=== PATIENT | female | born 1970 | race African-American/Black ===

== ENCOUNTER 2018-12-22 12:57 | Inpatient (IN) | payer MEDICAID ==
[~2018-12-22] VITALS: Ht 162.6 cm; Wt 60.8 kg
[2018-12-22] MEDS ORDERED: OXYCODONE-APAP1 T10 PO (13:15)
[2018-12-22] MEDS ORDERED: ATIVAN1 MG (13:15)
[2018-12-22] MEDS ORDERED: COZAAR50 MG (13:16)
[2018-12-22 13:56] LABS: BASOPHILS 0.3 % (0-2); EOSINOPHILS 0.8 % (0-7); HEMATOCRIT 41.9 % (36.0-48.0); HEMOGLOBIN 13.8 g/dL (12-16); IMMATURE GRANULOCYTES 0.2 % (0-5); LYMPHOCYTES 54.3 % (15-50); MCH 30.6 pg (26.0-34.0); MCHC 32.9 g/dL (31.0-37.0); MCV 92.9 fL (80.0-100.0); MEAN PLATELET VOLUME 9.7 fL (7.4-10.4); MONOCYTES 3.1 % (2-11); NEUTROPHILS 41.3 % (40-80); PLATELET COUNT 303 10x3/uL (130-400); RBC 4.51 10x6/uL (4.00-5.40); RDW 18.2 % (11.5-14.5); WBC 8.6 10x3/uL (4.8-10.8)
[2018-12-22 14:08] LABS: ALBUMIN 3.9 g/dL (3.4-5.0); ALKALINE PHOSPHATASE 81 U/L (46-116); ALT (SGPT) 31 U/L (10-68); BILIRUBIN - TOTAL 0.18 mg/dL (0.2-1.3); CALC OSMOLALITY 292 mosm/kg (275-300); CALCIUM 9.2 mg/dL (8.5-10.1); CARBON DIOXIDE 27.9 mmol/L (21.0-32.0); CHLORIDE - SERUM 108 mmol/L (98-107); CREATININE - SERUM 0.7 mg/dL (0.6-1.3); GLUCOSE 99 mg/dL (74-106); POTASSIUM - SERUM 3.5 mmol/L (3.5-5.1); PROTEIN - SERUM 7.8 g/dL (6.4-8.2); SODIUM 148 mmol/L (136-145); UREA NITROGEN 9 mg/dL (7-18); eGFR NON AFRICAN AMERICAN > 90 mL/min (90-120)
--- NOTE | 2018-12-22 14:55 | NUR ---
URINE COLLECTED BY NURSE AND SENT TO LAB.
[2018-12-22 15:24] LABS: APPEARANCE CLEAR (CLEAR); BILIRUBIN NEGATIVE (NEGATIVE); COLOR YELLOW (YELLOW); GLUCOSE NEGATIVE (NEGATIVE); KETONE NEGATIVE (NEGATIVE); NITRITE NEGATIVE (NEGATIVE); PROTEIN NEGATIVE (NEGATIVE); UROBILINOGEN NORMAL (NORMAL)
[2018-12-22 15:37] LABS: UDS - AMPHET NEGATIVE QUAL (NEGATIVE); UDS - BARB NEGATIVE QUAL (NEGATIVE); UDS - BENZO POSITIVE QUAL (NEGATIVE); UDS - COCAINE NEGATIVE QUAL (NEGATIVE); UDS - OPIATE NEGATIVE QUAL (NEGATIVE); UDS - PCP NEGATIVE QUAL (NEGATIVE); UDS - THC NEGATIVE QUAL (NEGATIVE)
[2018-12-22 19:53] LABS: INR 1.07 (0.85-1.17); PROTIME 13.4 SECONDS (11.6-15.0)
[2018-12-22 22:50] VITALS: BP 167/99; BMI 23.0
--- NOTE | 2018-12-22 23:00 | NUR ---
NEW PATIENT ADMITTED TO DR VEGA ON MED 3 FROM [facility] ED. PATIENT ADMITTED FOR AMS AND HYPERAMMONEMIA. PATIENT IS CHRONIC ALCOHOLIC AND DRINKS HARD LIQUOR DAILY. UPON ARRIVAL TO MED 3, PATIENT IS ALERT AND ORIENTED AND ANSWERS QUESTIONS. HOWEVER, PATIENT IS UNABLE TO RECALL HOME MEDICATIONS OR DOSES PATIENT IS COOPERATIVE WITH ADMISSION ASSESSMENT. 20 G IV TO RIGHT AC INFUSING BANANA BAG @ 125 ML/HR. PATIENT REQUESTS SOMETHING FOR PAIN IN LEFT SHOULDER. STATES SHE FELL THIS MORNING AND THAT IS WHY SHE CAME TO THE HOSPITAL. NO PAIN MEDS ORDERED. WILL CALL DR TO GET ORDER FOR PAIN MED. NO FURTHER NEEDS AT THIS TIME. BED IN LOWEST POSITION. SIDE RAILS UP. CALL LIGHT IN REACH. CONTINUE PLAN OF CARE.
--- NOTE | 2018-12-22 23:14 | NUR ---
ORDER FOR TYLENOL 500 MG PO Q6H PRN RECEIVED FROM FLOR GONZALEZ, [employer] OPERATIONS ENGINEER FOR DR VEGA.
--- NOTE | 2018-12-23 03:00 | NUR ---
PATIENT RESING IN BED WITH EYES CLOSED AT THIS TIME. NO SIGNS OF DISTRESS. BED IN LOWEST POSITION. SIDE RAILS UP. CALL LIGTH IN REACH. CONTINUE PLAN OF CARE.
[2018-12-23 04:00] VITALS: BP 181/111
--- NOTE | 2018-12-23 06:20 | NUR ---
BP 181/111. ORDER FOR APRESOLINE 10 MG IV Q6H PRN SBP GREATER THAN 170 RECEIVED FROM FLOR GONZALEZ, DESKTOP ENGINEER FOR DR VEGA.
[2018-12-23 07:37] LABS: BASOPHILS 0.3 % (0-2); HEMOGLOBIN 12.6 g/dL (12-16); IMMATURE GRANULOCYTES 0.1 % (0-5); LYMPHOCYTES 54.5 % (15-50); MCH 30.1 pg (26.0-34.0); MCHC 32.3 g/dL (31.0-37.0); MCV 93.1 fL (80.0-100.0); MEAN PLATELET VOLUME 9.9 fL (7.4-10.4); MONOCYTES 4.3 % (2-11); NEUTROPHILS 39.8 % (40-80); PLATELET COUNT 285 10x3/uL (130-400); RBC 4.19 10x6/uL (4.00-5.40); RDW 17.8 % (11.5-14.5); WBC 7.6 10x3/uL (4.8-10.8)
[2018-12-23 08:23] LABS: ALBUMIN 3.4 g/dL (3.4-5.0); ALKALINE PHOSPHATASE 72 U/L (46-116); ALT (SGPT) 29 U/L (10-68); BILIRUBIN - TOTAL 0.35 mg/dL (0.2-1.3); CALC OSMOLALITY 285 mosm/kg (275-300); CALCIUM 8.4 mg/dL (8.5-10.1); CHLORIDE - SERUM 106 mmol/L (98-107); CREATININE - SERUM 0.7 mg/dL (0.6-1.3); GLUCOSE 103 mg/dL (74-106); POTASSIUM - SERUM 3.7 mmol/L (3.5-5.1); PROTEIN - SERUM 6.7 g/dL (6.4-8.2); SODIUM 145 mmol/L (136-145); UREA NITROGEN 5 mg/dL (7-18); eGFR NON AFRICAN AMERICAN > 90 mL/min (90-120)
--- NOTE | 2018-12-23 09:00 | NUR ---
DENIES ANY NEEDS AT THIS TIME.
[2018-12-23 10:06] VITALS: BP 179/108
[2018-12-23 12:19] VITALS: BP 163/102
[2018-12-23 13:32] VITALS: Ht 162.6 cm; Wt 60.8 kg
[2018-12-23] MEDS ORDERED: NORVASC5 MG PO (15:19)
[2018-12-23 17:44] VITALS: BP 180/122
--- NOTE | 2018-12-23 18:02 | NUR ---
PT DC AT THIS TIME, IV DC WITH CATH INTACT, INSTRUCTIONS GIVEN PT VERABLIZES UNDERSTANDING LEAVING VIA AMBULATING VIA FAMILY MEMBER IN STABLE CONDITION
[2018-12-24 07:33] LABS: HEPATITIS C ANTIBODY <0.1 S/CO RAT (0.0-0.9)
== END 2018-12-23 18:23 | disposition home or self-care (01) | DRG 442 ==
LOC: D.ER 12:57 → EDBD 12:57 → D.M3 18:16 → D.EDHOLD 18:16 → D.M3 19:23
PROVIDERS: Family Medicine; ADMIT Family Medicine
DX: K72.90 Hepatic failure, unspecified without coma (principal); E72.20 Disorder of urea cycle metabolism, unspecified; F17.213 Nicotine dependence, cigarettes, with withdrawal; E86.0 Dehydration; R10.11 Right upper quadrant pain; F41.9 Anxiety disorder, unspecified; I10 Essential (primary) hypertension; Y90.7 Blood alcohol level of 200-239 mg/100 ml; F10.229 Alcohol dependence with intoxication, unspecified

== ENCOUNTER 2019-03-15 16:00 | Emergency (ER) | payer MEDICAID ==
[~2019-03-15] VITALS: Ht 162.6 cm; Wt 50.0 kg
[~2019-03-15 16:00] MED LIST: ATIVAN1 MG; COZAAR50 MG; NORVASC5 MG PO; OXYCODONE-APAP1 T10 PO
[2019-03-15 16:02] VITALS: Ht 162.6 cm; Wt 50.0 kg
[2019-03-15 16:39] LABS: HEMATOCRIT 41.5 % (36.0-48.0); MCH 30.4 pg (26.0-34.0); MCHC 33.7 g/dL (31.0-37.0); MCV 90.2 fL (80.0-100.0); MEAN PLATELET VOLUME 9.9 fL (7.4-10.4); PLATELET COUNT 249 10x3/uL (130-400); RDW 18.8 % (11.5-14.5); WBC 9.6 10x3/uL (4.8-10.8)
[2019-03-15 16:43] LABS: APPEARANCE CLEAR (CLEAR); BILIRUBIN NEGATIVE (NEGATIVE); COLOR YELLOW (YELLOW); GLUCOSE NEGATIVE (NEGATIVE); KETONE NEGATIVE (NEGATIVE); NITRITE NEGATIVE (NEGATIVE); PROTEIN NEGATIVE (NEGATIVE); UROBILINOGEN NORMAL (NORMAL)
[2019-03-15 16:47] LABS: ALBUMIN 3.8 g/dL (3.4-5.0); ALKALINE PHOSPHATASE 86 U/L (46-116); ALT (SGPT) 22 U/L (10-68); BILIRUBIN - TOTAL 0.27 mg/dL (0.2-1.3); CALC OSMOLALITY 294 mosm/kg (275-300); CALCIUM 8.4 mg/dL (8.5-10.1); CARBON DIOXIDE 26.6 mmol/L (21.0-32.0); CHLORIDE - SERUM 109 mmol/L (98-107); GLUCOSE 100 mg/dL (74-106); POTASSIUM - SERUM 3.8 mmol/L (3.5-5.1); PROTEIN - SERUM 7.8 g/dL (6.4-8.2); SODIUM 148 mmol/L (136-145); UREA NITROGEN 14 mg/dL (7-18); eGFR NON AFRICAN AMERICAN 63 mL/min (90-120)
[2019-03-15 16:55] LABS: AMYLASE - SERUM 24 U/L (25-115); LIPASE 162 U/L (73-393)
[2019-03-15 16:56] LABS: TROPONIN-I < 0.017 ng/mL (0.000-0.060)
[2019-03-15] MEDS ORDERED: EDARBI40 MG (17:01)
[2019-03-15] MEDS ORDERED: ATIVAN2 MG PO (17:02)
[2019-03-15] MEDS ORDERED: COZAAR25 MG PO (17:02)
[2019-03-15] MEDS ORDERED: CREON DR 24,001 EACH PO (17:02)
[2019-03-15] MEDS ORDERED: PROTONIX40 MG PO (17:19)
[2019-03-15 17:32] VITALS: BP 113/86
[2019-03-15 18:04] LABS: LYMPHOCYTES 62 % (15-50); MONOCYTES 2 % (2-11); NEUTROPHILS 36 % (40-80); PLATELET ESTIMATE NORMAL
== END 2019-03-15 17:33 | disposition home or self-care (01) ==
LOC: D.ER 16:00
PROVIDERS: Family Medicine
DX: K29.20 Alcoholic gastritis without bleeding (principal)

== ENCOUNTER 2019-05-03 19:22 | Emergency (ER) | payer MEDICAID ==
[~2019-05-03] VITALS: Ht 162.6 cm; Wt 60.9 kg
[~2019-05-03 19:22] MED LIST changes: +ATIVAN2 MG PO; +COZAAR25 MG PO; +CREON DR 24,001 EACH PO; +EDARBI40 MG; +PROTONIX40 MG PO
[2019-05-03 19:33] VITALS: Ht 162.6 cm; Wt 60.9 kg
[2019-05-03] MEDS ORDERED: TORADOL10 MG PO (20:16)
[2019-05-03 20:20] VITALS: BP 133/74
== END 2019-05-03 20:20 | disposition home or self-care (01) ==
LOC: D.ER 19:22
DX: S60.032A Contusion of left middle finger without damage to nail, initial encounter (principal); W23.0XXA Caught, crushed, jammed, or pinched between moving objects, initial encounter; Y93.89 Activity, other specified; Y92.019 Unspecified place in single-family (private) house as the place of occurrence of the external cause

== ENCOUNTER 2019-06-08 07:31 | Day surgery (SDC) | payer MEDICAID ==
[~2019-06-08] VITALS: Ht 162.6 cm; Wt 63.6 kg
--- NOTE | ~2019-06-08 | OP ---
PATIENT NAME: RAMON RIVAS MEDICAL RECORD: [id number] :70 LOCATION:[facility] ADMISSION DATE: SURGEON: HERNESTO TYLER DO DATE OF OPERATION: 06/08/2019 PROCEDURE: Colonoscopy with polypectomy. INDICATIONS FOR PROCEDURE: Chronic constipation, generalized abdominal pain, personal history of polyps with her last colonoscopy being 10/08/2016. SCOPE: Olympus video pediatric colonoscope. MEDICATIONS: 600 mg IV propofol per anesthesia. WITHDRAWAL TIME: 28 minutes. ESTIMATED BLOOD LOSS: Minimal. COMPLICATIONS: None. FINDINGS: Informed consent was given. The patient was made comfortable with the above medication. After reaching an adequate level of sedation by slow IV push, the patient was placed in the left side. A digital rectal examination was performed and revealed some external hemorrhoids. The endoscope was advanced under direct visualization through the rectum to the cecum, confirmed by the presence of the appendiceal orifice and ileocecal valve. The endoscope was slowly withdrawn. Mucosa was carefully examined. The prep quality was good. There were multiple polyps visualized on today's examination. The first was located in the appendiceal orifice. It was benign appearing and measured approximately 4-5 mm in diameter. A biopsy was taken and the polyp was cauterized due to its location and difficulty with removing it using a forcep or snare. In the cecum, there were 3 separate polyps. One was slightly larger at 6 mm in size. It was benign appearing and sessile, and was removed using a hot snare. In other 2 were diminutive measuring 2-3 mm in diameter. They were both removed using the hot forceps. In the ascending colon, there was another benign appearing polyp, which measured approximately 5 mm in diameter. It was removed using EMR technique with a saline pillow followed by hot snare polypectomy. A single endoclip was used to close the tissue to prevent delayed complications. In the sigmoid colon, there were two separate benign-appearing sessile polyps, which ranged in size from 2-4 mm in diameter. They were both removed using hot forceps in 1 piece and completely retrieved. In the rectum, there was 1 benign appearing polyp, which measured approximately 3 mm in diameter and that was removed using hot forceps. There was evidence of moderate diverticulosis throughout the entire colon. Retroflexion was performed in the rectum with visualization of grade II internal hemorrhoids without active bleeding. The endoscope was withdrawn from the patient. The patient tolerated the procedure well and there were no complications. IMPRESSIONS: 1. Multiple polyps as described above, removed using a combination of a hot forcep, hot snare, and EMR technique. 2. Moderate diverticulosis of the entire colon. 3. Internal and external hemorrhoids without bleeding. PLAN AND RECOMMENDATIONS: OPERATIVE REPORT [id number] RAMON RIVAS 1. Discharge home when recovery parameters are met. 2. Follow up biopsy specimen results. 3. High fiber diet. 4. Supplement diet with 1 tablespoon of Metamucil daily. 5. Okay to use MiraLax 1 cap daily as needed for constipation. 6. If these measures fail to improve constipation, consider Linzess or Amimarquisza regarding IBS, which is constipation predominant. 7. Recall will be dependent on pathology of the above polyps, but I anticipate this being 2-3 years. TRANSINT:[id number] Voice Confirmation ID: [id number] DOCUMENT ID: [id number] HERNESTO TYLER DO CC: [id number] DICTATION DATE: 06/08/19 1023 CENTRAL OFFICE TECHNICIAN: 06/08/19 1132 [facility] 06/08/19 [facility] [address] [place] [address]
[~2019-06-08 07:31] MED LIST changes: +TORADOL10 MG PO
[2019-06-08 07:53] LABS: HEMATOCRIT 40.3 % (36.0-48.0); HEMOGLOBIN 13.5 g/dL (12-16); MCH 31.2 pg (26.0-34.0); MCHC 33.5 g/dL (31.0-37.0); MCV 93.1 fL (80.0-100.0); MEAN PLATELET VOLUME 9.4 fL (7.4-10.4); RBC 4.33 10x6/uL (4.00-5.40); RDW 17.2 % (11.5-14.5); WBC 10.1 10x3/uL (4.8-10.8)
[2019-06-08] MEDS ORDERED: PERCOCET 10-321 EAC1 (08:35)
[2019-06-08] MEDS ORDERED: AMBIEN10 MG PO (08:35)
[2019-06-08] MEDS ORDERED: CARAFATE1 G PO (08:36)
[2019-06-08] MEDS ORDERED: PHENERGAN25 M1 PO (08:36)
[2019-06-08 08:44] VITALS: BP 139/101; Ht 162.6 cm; Wt 63.6 kg
--- NOTE | 2019-06-08 10:43 | NUR ---
BP HIGH. PT SELF-ADMINISTERED HOME BP MED
== END 2019-06-08 11:11 | disposition home or self-care (01) ==
LOC: D.OPS 07:31
PROVIDERS: Anesthesiology; ATTEND Internal Medicine Gastroenterology
DX: D12.0 Benign neoplasm of cecum (principal); K63.5 Polyp of colon; K57.30 Diverticulosis of large intestine without perforation or abscess without bleeding; K64.1 Second degree hemorrhoids; K64.4 Residual hemorrhoidal skin tags; Z86.010 Personal history of colon polyps; Z01.812 Encounter for preprocedural laboratory examination

== ENCOUNTER 2019-09-09 23:25 | Emergency (ER) | payer MEDICAID ==
[~2019-09-09] VITALS: Ht 162.6 cm; Wt 65.8 kg
[~2019-09-09 23:25] MED LIST changes: +AMBIEN10 MG PO; +CARAFATE1 G PO; +PERCOCET 10-321 EAC1; +PHENERGAN25 M1 PO
[2019-09-09 23:32] VITALS: Ht 162.6 cm; Wt 65.8 kg
[2019-09-10 00:10] LABS: APPEARANCE CLEAR (CLEAR); BILIRUBIN NEGATIVE (NEGATIVE); COLOR YELLOW (YELLOW); GLUCOSE NEGATIVE (NEGATIVE); KETONE MODERATE mg/dL (NEGATIVE); NITRITE NEGATIVE (NEGATIVE); PROTEIN NEGATIVE (NEGATIVE); UROBILINOGEN NORMAL (NORMAL)
[2019-09-10 00:20] LABS: BASOPHILS 0.5 % (0-2); EOSINOPHILS 0.3 % (0-7); HEMATOCRIT 44.5 % (36.0-48.0); HEMOGLOBIN 14.5 g/dL (12-16); IMMATURE GRANULOCYTES 2.1 % (0-5); LYMPHOCYTES 20.9 % (15-50); MCH 31.5 pg (26.0-34.0); MCHC 32.6 g/dL (31.0-37.0); MCV 96.5 fL (80.0-100.0); MEAN PLATELET VOLUME 9.5 fL (7.4-10.4); MONOCYTES 2.9 % (2-11); NEUTROPHILS 73.3 % (40-80); PLATELET COUNT 280 10x3/uL (130-400); RBC 4.61 10x6/uL (4.00-5.40); RDW 18.6 % (11.5-14.5); WBC 10.5 10x3/uL (4.8-10.8)
[2019-09-10 00:40] LABS: ALBUMIN 3.7 g/dL (3.4-5.0); ALKALINE PHOSPHATASE 87 U/L (46-116); ALT (SGPT) 18 U/L (10-68); BILIRUBIN - TOTAL 0.44 mg/dL (0.2-1.3); CALC OSMOLALITY 278 mosm/kg (275-300); CALCIUM 8.9 mg/dL (8.5-10.1); CARBON DIOXIDE 31.5 mmol/L (21.0-32.0); CHLORIDE - SERUM 102 mmol/L (98-107); CREATININE - SERUM 0.5 mg/dL (0.6-1.3); GLUCOSE 118 mg/dL (74-106); LIPASE 87 U/L (73-393); POTASSIUM - SERUM 4.7 mmol/L (3.5-5.1); PROTEIN - SERUM 7.8 g/dL (6.4-8.2); SODIUM 140 mmol/L (136-145); UREA NITROGEN 10 mg/dL (7-18); eGFR NON AFRICAN AMERICAN > 90 mL/min (90-120)
[2019-09-10 01:10] VITALS: BP 148/82
== END 2019-09-10 01:11 | disposition home or self-care (01) ==
LOC: D.ER 23:25
PROVIDERS: Family Medicine
DX: K59.00 Constipation, unspecified (principal); I10 Essential (primary) hypertension

== ENCOUNTER 2020-03-09 21:15 | Emergency (ER) | payer OTHER ==
[~2020-03-09] VITALS: Ht 162.6 cm; Wt 59.1 kg
[2020-03-09 21:18] VITALS: Ht 162.6 cm; Wt 59.1 kg
[2020-03-09] MEDS ORDERED: HYDROCODON-ACE1 EAC7 PO (21:45)
[2020-03-09 22:27] VITALS: BP 155/89
== END 2020-03-09 22:29 | disposition home or self-care (01) ==
LOC: D.ER 21:15
DX: S52.502A Unspecified fracture of the lower end of left radius, initial encounter for closed fracture (principal); X58.XXXA Exposure to other specified factors, initial encounter; Y93.9 Activity, unspecified; Y92.9 Unspecified place or not applicable; I10 Essential (primary) hypertension; Z72.0 Tobacco use

== ENCOUNTER 2020-05-04 08:35 | Inpatient (IN) | payer OTHER ==
[~2020-05-04] VITALS: Ht 162.6 cm; Wt 63.6 kg
[2020-05-04] VITALS (7 sets, daily range): BP systolic 139–169; BP diastolic 92–110
[~2020-05-04 08:35] MED LIST changes: +HYDROCODON-ACE1 EAC7 PO
[2020-05-04 09:14] LABS: BASOPHILS 0.2 % (0-2); EOSINOPHILS 0.6 % (0-7); HEMATOCRIT 38.4 % (36.0-48.0); HEMOGLOBIN 11.8 g/dL (12-16); IMMATURE GRANULOCYTES 0.9 % (0-5); LYMPHOCYTES 25.9 % (15-50); MCHC 30.7 g/dL (31.0-37.0); MEAN PLATELET VOLUME 9.3 fL (7.4-10.4); MONOCYTES 3.6 % (2-11); NEUTROPHILS 68.8 % (40-80); RBC 4.22 10x6/uL (4.00-5.40); RDW 19.3 % (11.5-14.5); WBC 12.8 10x3/uL (4.8-10.8)
[2020-05-04 09:21] LABS: PLATELET COUNT 419 10x3/uL (130-400)
[2020-05-04 09:23] LABS: APTT 30.6 SECONDS (22.8-39.4); INR 0.99 (0.85-1.17); PROTIME 13.1 SECONDS (11.6-15.0)
[2020-05-04 09:33] LABS: CALC OSMOLALITY 273 mosm/kg (275-300); CHLORIDE - SERUM 104 mmol/L (98-107); GLUCOSE 98 mg/dL (74-106); SODIUM 138 mmol/L (136-145); UREA NITROGEN 6 mg/dL (7-18); eGFR NON AFRICAN AMERICAN 62 mL/min (90-120)
[2020-05-04 09:49] LABS: ALBUMIN 3.4 g/dL (3.4-5.0); ALKALINE PHOSPHATASE 85 U/L (30-120); ALT (SGPT) 21 U/L (10-68); BILIRUBIN - TOTAL 0.22 mg/dL (0.2-1.3); CKMB 1.1 U/L (0.0-3.6); CREATINE KINASE 149 UL (21-215); MAGNESIUM - SERUM 1.9 mg/dL (1.8-2.4); PROTEIN - SERUM 7.6 g/dL (6.4-8.2); TROPONIN-I < 0.017 ng/mL (0.000-0.060)
[2020-05-04 12:35] LABS: CKMB 0.7 U/L (0.0-3.6); CREATINE KINASE 133 UL (21-215); TROPONIN-I < 0.017 ng/mL (0.000-0.060)
--- NOTE | 2020-05-04 13:07 | NUR ---
ROOM ASSIGNED AT 1142. ADMIT PACKET READY AT 1142.
--- NOTE | 2020-05-04 16:01 | NUR ---
SITED 20 GA SALINE LOCK TO RAC X 1 STICK USING ASEPTIC TECHNIQUE PT TOLERATED WELL
[2020-05-04 19:54] LABS: AMYLASE - SERUM 24 U/L (25-115); LIPASE 143 U/L (73-393)
[2020-05-05] VITALS (7 sets, daily range): BP systolic 118–190; BP diastolic 85–102; Ht 162.6 cm; Wt 63.6 kg
[2020-05-05 02:43] LABS: BASOPHILS 0.2 % (0-2); EOSINOPHILS 1.2 % (0-7); HEMATOCRIT 36.7 % (36.0-48.0); HEMOGLOBIN 11.2 g/dL (12-16); LYMPHOCYTES 38.1 % (15-50); MCH 27.6 pg (26.0-34.0); MCHC 30.5 g/dL (31.0-37.0); MCV 90.4 fL (80.0-100.0); MEAN PLATELET VOLUME 9.4 fL (7.4-10.4); MONOCYTES 3.3 % (2-11); NEUTROPHILS 56.2 % (40-80); PLATELET COUNT 393 10x3/uL (130-400); RBC 4.06 10x6/uL (4.00-5.40); RDW 18.6 % (11.5-14.5); WBC 10.1 10x3/uL (4.8-10.8)
[2020-05-05 03:36] LABS: ALBUMIN 2.9 g/dL (3.4-5.0); ALKALINE PHOSPHATASE 86 U/L (30-120); BILIRUBIN - TOTAL 0.14 mg/dL (0.2-1.3); CALC OSMOLALITY 272 mosm/kg (275-300); CALCIUM 8.8 mg/dL (8.5-10.1); CHLORIDE - SERUM 106 mmol/L (98-107); CKMB 0.6 U/L (0.0-3.6); CREATINE KINASE 90 UL (21-215); CREATININE - SERUM 0.8 mg/dL (0.6-1.3); GLUCOSE 87 mg/dL (74-106); POTASSIUM - SERUM 4.1 mmol/L (3.5-5.1); PROTEIN - SERUM 6.9 g/dL (6.4-8.2); SODIUM 138 mmol/L (136-145); TROPONIN-I < 0.017 ng/mL (0.000-0.060); UREA NITROGEN 7 mg/dL (7-18); eGFR NON AFRICAN AMERICAN 81 mL/min (90-120)
[2020-05-05 03:40] LABS: ALT (SGPT) 15 U/L (10-68); MAGNESIUM - SERUM 2.5 mg/dL (1.8-2.4)
--- NOTE | 2020-05-05 07:15 | NUR ---
RECEIVED PT IN BED EYES CLOSED RESP UNLABORED SKIN W/D COLOR WNL NAD NOTED
--- NOTE | 2020-05-05 20:00 | NUR ---
REPORT RECEIVED. PT IN BED VISITING WITH MOTHER. DENIES NEEDS, NO DISTRESS OBSERVED. RR EVEN AND UNLABORED. CALL LIGHT IN REACH. WILL CTM.
[2020-05-06] VITALS: BP 155/82
[2020-05-06 04:00] VITALS: BP 142/84
[2020-05-06 04:51] LABS: BASOPHILS 0.3 % (0-2); EOSINOPHILS 1.1 % (0-7); HEMATOCRIT 35.8 % (36.0-48.0); HEMOGLOBIN 11.1 g/dL (12-16); IMMATURE GRANULOCYTES 1.2 % (0-5); LYMPHOCYTES 34.5 % (15-50); MCH 27.8 pg (26.0-34.0); MCV 89.7 fL (80.0-100.0); MEAN PLATELET VOLUME 8.9 fL (7.4-10.4); MONOCYTES 3.3 % (2-11); NEUTROPHILS 59.6 % (40-80); PLATELET COUNT 365 10x3/uL (130-400); RBC 3.99 10x6/uL (4.00-5.40); RDW 18.8 % (11.5-14.5); WBC 9.1 10x3/uL (4.8-10.8)
[2020-05-06 05:14] LABS: ALBUMIN 2.8 g/dL (3.4-5.0); ALKALINE PHOSPHATASE 78 U/L (30-120); ALT (SGPT) 14 U/L (10-68); BILIRUBIN - TOTAL 0.14 mg/dL (0.2-1.3); CALC OSMOLALITY 273 mosm/kg (275-300); CALCIUM 8.6 mg/dL (8.5-10.1); CARBON DIOXIDE 18.9 mmol/L (21.0-32.0); CHLORIDE - SERUM 107 mmol/L (98-107); CREATININE - SERUM 0.7 mg/dL (0.6-1.3); GLUCOSE 98 mg/dL (74-106); MAGNESIUM - SERUM 2.8 mg/dL (1.8-2.4); POTASSIUM - SERUM 3.7 mmol/L (3.5-5.1); PROTEIN - SERUM 6.6 g/dL (6.4-8.2); SODIUM 138 mmol/L (136-145); UREA NITROGEN 8 mg/dL (7-18); eGFR NON AFRICAN AMERICAN > 90 mL/min (90-120)
[2020-05-06 05:17] LABS: AMYLASE - SERUM 17 U/L (25-115); LIPASE 77 U/L (73-393)
[2020-05-06 08:44] VITALS: BP 172/86
[2020-05-06 10:01] LABS: UDS - AMPHET NEGATIVE QUAL (NEGATIVE); UDS - BARB NEGATIVE QUAL (NEGATIVE); UDS - BENZO NEGATIVE QUAL (NEGATIVE); UDS - COCAINE NEGATIVE QUAL (NEGATIVE); UDS - OPIATE POSITIVE QUAL (NEGATIVE); UDS - PCP NEGATIVE QUAL (NEGATIVE); UDS - THC NEGATIVE QUAL (NEGATIVE)
[2020-05-06 10:18] LABS: BILIRUBIN NEGATIVE (NEGATIVE); GLUCOSE NEGATIVE (NEGATIVE); KETONE SMALL mg/dL (NEGATIVE); NITRITE NEGATIVE (NEGATIVE); SPECIFIC GRAVITY 1.015 (1.005-1.020); UROBILINOGEN NORMAL (NORMAL)
[2020-05-06 11:41] VITALS: BP 155/89
[2020-05-06 15:24] VITALS: BP 160/92
--- NOTE | 2020-05-06 19:00 | NUR ---
REPORT RECEIVED, WILL CONTINUE POC. PATIENT IS AAOX4, LYING IN SEMI-FOWLERS POSITION. NO S/S OF DISTRESS OBSERVED, RR EVEN AND UNLABORED ON ROOM AIR. PIV TO RT FA, INFUSING NS @ 125, DRSG C/D/I. PATIENT DENIES NEEDS AT THIS TIME. CL IN REACH, BED LOCKED AND LOWERED. WILL CTM.
[2020-05-06 20:30] VITALS: BP 174/97
--- NOTE | 2020-05-06 20:30 | NUR ---
PATIENT ASKED FOR PRN AMBIEN, ADMINISTERED PER ORDERS.
--- NOTE | 2020-05-06 20:35 | NUR ---
BP 174/97 PRN APRESONLINE ADMINISTERED PER ORDERS.
--- NOTE | 2020-05-06 22:50 | NUR ---
PATIENT C/O PAIN, MORPHINE AND ZOFRAN ADMINISTERED PER ORDERS.
[2020-05-07 00:30] VITALS: BP 160/77
--- NOTE | 2020-05-07 02:54 | NUR ---
I have reviewed this patient and I concur with the Shift Assessment completed by the Licensed Practical Nurse today this shift.
[2020-05-07 04:30] VITALS: BP 151/82
[2020-05-07 07:40] VITALS: BP 151/90
--- NOTE | 2020-05-07 07:58 | NUR ---
PT AWAKE AND ORIENTED, LYING IN BED ON LEFT SIDE. NO COMPLAINTS OR CONCERNS STATED AT THIS TIME. CL IN REACH, SRX2. ALL QUESTIONS ANSWERED TO THE BEST OF MY ABILITY.
[2020-05-07 08:02] LABS: BASOPHILS 0.2 % (0-2); EOSINOPHILS 1.1 % (0-7); HEMATOCRIT 35.6 % (36.0-48.0); HEMOGLOBIN 10.8 g/dL (12-16); IMMATURE GRANULOCYTES 1.1 % (0-5); LYMPHOCYTES 35.7 % (15-50); MCH 27.6 pg (26.0-34.0); MCHC 30.3 g/dL (31.0-37.0); MEAN PLATELET VOLUME 9.3 fL (7.4-10.4); MONOCYTES 3.9 % (2-11); PLATELET COUNT 310 10x3/uL (130-400); RBC 3.91 10x6/uL (4.00-5.40); RDW 19.5 % (11.5-14.5); WBC 8.4 10x3/uL (4.8-10.8)
[2020-05-07 08:21] LABS: ALBUMIN 2.9 g/dL (3.4-5.0); ALKALINE PHOSPHATASE 70 U/L (30-120); ALT (SGPT) 17 U/L (10-68); AMYLASE - SERUM 21 U/L (25-115); BILIRUBIN - TOTAL 0.13 mg/dL (0.2-1.3); CALC OSMOLALITY 275 mosm/kg (275-300); CALCIUM 8.6 mg/dL (8.5-10.1); CARBON DIOXIDE 19.9 mmol/L (21.0-32.0); CHLORIDE - SERUM 109 mmol/L (98-107); CREATININE - SERUM 0.7 mg/dL (0.6-1.3); GLUCOSE 99 mg/dL (74-106); LIPASE 84 U/L (73-393); POTASSIUM - SERUM 3.8 mmol/L (3.5-5.1); PROTEIN - SERUM 6.5 g/dL (6.4-8.2); SODIUM 139 mmol/L (136-145); UREA NITROGEN 8 mg/dL (7-18); eGFR NON AFRICAN AMERICAN > 90 mL/min (90-120)
--- NOTE | 2020-05-07 09:01 | NUR ---
PT AWAKE AND ORIENTED, LYING IN BED ON SIDE. FIXED I/V IT WAS BEEPING D/T POSITION.
--- NOTE | 2020-05-07 11:18 | NUR ---
PT RESTING COMFORTABLY, WAKES EASILY TO LIGHT STIMULI. DNEIES NEEDS FOR PAIN OR NAUSEA MEDS AT THIS TIME. CL NI REACH, SRX2.
[2020-05-07 11:37] VITALS: BP 191/97
--- NOTE | 2020-05-07 14:33 | NUR ---
PT WILL BE DISCHARGING PER DR. RAMIREZ.
[2020-05-07 14:40] LABS: CHOL - HDL RATIO 5.3 ratio (2.3-4.1); CHOLESTEROL, TOTAL 205 mg/dL (0-200); HDL CHOLESTEROL 39 mg/dL (32-96); TRIGLYCERIDE 444 mg/dL (30-200)
[2020-05-07 14:54] VITALS: BP 146/95
--- NOTE | 2020-05-07 15:21 | MORECARE ---
CASE MANAGEMENT DISCHARGE SUMMARY PATIENT: RAMON RIVAS UNIT: [id number] ADM DATE: 05/06/20 AGE: 49 : 70 SEX: F ROOM/BED: D.7926 AUTHOR: MAXIME,DOC PHYSICIAN: REFERRING PHYSICIAN: RAYO ANNE MD DATE OF SERVICE: 05/07/20 Discharge Plan Patient Name: RAMON RIVAS Facility: [facility]:[place] : 1970 Planned Disposition: Home Anticipated Discharge Date: Discharge Date: Expected LOS: Initial Reviewer: [email or web address] Initial Review Date: 05/04/2020 Generated: 05/07/20 4:20 pm Comments DCP- Discharge Planning Updated by [email or web address]: Nidhi Tripp on 05/07/20 2:[address] Patient Name: RAMON RIVAS Admission Status: ER Accout number: [id number] Admission Date: 05-06-2020 : 1970 Admission Diagnosis: Attending: EDWIN Current LOS: 1 Anticipated DC Date: Planned Disposition: Home Primary Insurance: [employer] MANAGED MEDICAID Discharge Planning Comments: CM met with patient to complete initial dc planning assessment. CM educated patient on the CM role and verbal consent given by patient to complete assessment. CM verified patient's address, phone number, and emergency contact phone numbers. Patient lives at home with Carlos Alberto escobar boyfriend. At discharge patient plans to return home and feels this is a safe discharge. CM discussed availability of home health, rehab services, and medical equipment. Patient denied known discharge needs at this time. Transportation provider at discharge will be Carlos Alberto. CM will continue to follow and will assist as needed with dc plans/needs. Dental Surgeon: Nidhi Tripp DCPIA - Discharge Planning Initial Assessment Updated by [email or web address]: Nidhi Tripp on 05/07/20 3:19 pm * Is the patient Alert and Oriented? Yes * How many steps to enter\exit or inside your home? 0/0 * PCP Brayan * Pharmacy [facility] on [facility] * Preadmission Environment Home with Family * ADLs Independent * Equipment Other * Other Equipment arm splint/brace * List name and contact numbers for known caregivers / representatives who currently or will assist patient after discharge: Carlos Alberto Leigh boyfriend * Verbal permission to speak to the caregivers and representatives has been obtained from the patient. N/A * Community resources currently utilized None * Additional services required to return to the preadmission environment? No * Can the patient safely return to the preadmission environment? Yes * Has this patient been hospitalized within the prior 30 days at any hospital? No Patient Name: RAMON RIVAS Page [id number] at 1521 All edits/amendments must be made on the electronic document DICTATION DATE: 05/07/20 1520 STAFF DEVELOPMENT COORDINATOR: DARYL 05/07/20 1520 RPT#: [id number] DC DATE: STATUS: ADM IN [facility] [address] [place] [address] END OF REPORT
--- NOTE | 2020-05-07 15:42 | NUR ---
PT ECORTED OUT TO POV, I/V OUT TIP INTACT VALERIE MOJICA
--- NOTE | 2020-05-08 09:25 | MORECARE ---
CASE MANAGEMENT DISCHARGE SUMMARY PATIENT: RAMON RIVAS UNIT: [id number] ADM DATE: 05/06/20 AGE: 49 : 70 SEX: F ROOM/BED: D.6292 AUTHOR: MAXIME,DOC PHYSICIAN: REFERRING PHYSICIAN: RAYO ANNE MD DATE OF SERVICE: 05/08/20 Discharge Plan Patient Name: RAMON RIVAS Facility: [facility]:[place] : 1970 Planned Disposition: Home Anticipated Discharge Date: Discharge Date: 05/07/2020 Expected LOS: Initial Reviewer: [email or web address] Initial Review Date: 05/04/2020 Generated: 05/08/20 10:25 am Comments DCP- Discharge Planning Updated by [email or web address]: Nidhi Tripp on 05/07/20 2:[address] Patient Name: RAMON RIVAS Admission Status: ER Accout number: [id number] Admission Date: 05-06-2020 : 1970 Admission Diagnosis: Attending: EDWIN Current LOS: 1 Anticipated DC Date: Planned Disposition: Home Primary Insurance: [employer] MANAGED MEDICAID Discharge Planning Comments: CM met with patient to complete initial dc planning assessment. CM educated patient on the CM role and verbal consent given by patient to complete assessment. CM verified patient's address, phone number, and emergency contact phone numbers. Patient lives at home with Carlos Alberto for boyfriend. At discharge patient plans to return home and feels this is a safe discharge. CM discussed availability of home health, rehab services, and medical equipment. Patient denied known discharge needs at this time. Transportation provider at discharge will be Carlos Alberto. CM will continue to follow and will assist as needed with dc plans/needs. Warp Bleaching Vat Tender: Nidhi Tripp DCPIA - Discharge Planning Initial Assessment Updated by [email or web address]: Nidhi Tripp on 05/07/20 3:19 pm * Is the patient Alert and Oriented? Yes * How many steps to enter\exit or inside your home? 0/0 * PCP Brayan * [facility] * Preadmission Environment Home with Family * ADLs Independent * Equipment Other * Other Equipment arm splint/brace * List name and contact numbers for known caregivers / representatives who currently or will assist patient after discharge: Carlos Alberto [place] boyfriend * Verbal permission to speak to the caregivers and representatives has been obtained from the patient. N/A * Community resources currently utilized None * Additional services required to return to the preadmission environment? No * Can the patient safely return to the preadmission environment? Yes * Has this patient been hospitalized within the prior 30 days at any hospital? No Last DP export: 05/07/20 2:21 pm Patient Name: RAMON RIVAS Page [phone] at 09 All edits/amendments must be made on the electronic document DICTATION DATE: 05/08/20924 PSYCHOLOGY PHYSICIAN: DARYL 05/08/20924 RPT#: [id number] DC DATE:05/07/20 STATUS: DIS IN [facility] [address] [place] [address] END OF REPORT
== END 2020-05-07 15:42 | disposition home or self-care (01) | DRG 204 ==
LOC: D.ER 08:35 → D.M2 11:37 → OBSVTIME 11:38 → D.M2 05-06 15:22
PROVIDERS: Family Medicine; ADMIT Family Medicine; ATTEND Family Medicine
DX: R07.81 Pleurodynia (principal); K85.90 Acute pancreatitis without necrosis or infection, unspecified; F17.213 Nicotine dependence, cigarettes, with withdrawal; I31.3 Pericardial effusion (noninflammatory); R07.89 Other chest pain; I10 Essential (primary) hypertension; F41.9 Anxiety disorder, unspecified; F10.20 Alcohol dependence, uncomplicated; K76.0 Fatty (change of) liver, not elsewhere classified; D64.9 Anemia, unspecified; D47.3 Essential (hemorrhagic) thrombocythemia

== ENCOUNTER → 2021-02-04 13:26 | Outpatient (CLI) | payer OTHER ==
[2020-05-05 01:45] VITALS: BMI 22.7
== END | disposition home or self-care (01) ==
LOC: D.NM 01-25 08:00
PROVIDERS: ATTEND Internal Medicine Gastroenterology
DX: R93.89 Abnormal findings on diagnostic imaging of other specified body structures (principal)

== ENCOUNTER 2021-02-28 09:27 | Day surgery (SDC) | payer OTHER ==
[~2021-02-28] VITALS: Ht 162.6 cm; Wt 64.4 kg
[~2021-02-28 09:27] MED LIST changes: +CREON PO; +HYDROCHLOROTH12.5 M1 PO; +OMEPRAZOLE20 M1 PO
[2021-02-28 12:28] VITALS: BP 116/113; Ht 162.6 cm; Wt 64.4 kg
[2021-02-28 12:55] LABS: CALC OSMOLALITY 279 mosm/kg (275-300); CALCIUM 9.1 mg/dL (8.5-10.1); CARBON DIOXIDE 25.8 mmol/L (21.0-32.0); CHLORIDE - SERUM 100 mmol/L (98-107); CREATININE - SERUM 0.8 mg/dL (0.6-1.3); GLUCOSE 100 mg/dL (74-106); POTASSIUM - SERUM 3.8 mmol/L (3.5-5.1); SODIUM 139 mmol/L (136-145); UREA NITROGEN 18 mg/dL (7-18); eGFR NON AFRICAN AMERICAN 80 mL/min (90-120)
[2021-02-28 12:58] LABS: BASOPHILS 0.6 % (0-2); EOSINOPHILS 0.9 % (0-7); HEMATOCRIT 41.4 % (36.0-48.0); HEMOGLOBIN 12.7 g/dL (12-16); IMMATURE GRANULOCYTES 0.3 % (0-5); LYMPHOCYTE ABS# 3.84 10x3/uL (1.18-3.74); LYMPHOCYTES 38.9 % (15-50); MCH 26.6 pg (26.0-34.0); MCHC 30.7 g/dL (31.0-37.0); MCV 86.6 fL (80.0-100.0); MEAN PLATELET VOLUME 9.8 fL (7.4-10.4); MONOCYTES 4.3 % (2-11); NEUTROPHIL ABS# 5.43 10x3/uL (1.56-6.13); RBC 4.78 10x6/uL (4.00-5.40); RDW 22.1 % (11.5-14.5); WBC 9.9 10x3/uL (4.8-10.8)
[2021-02-28 13:00] LABS: PLATELET COUNT 397 10x3/uL (130-400)
--- NOTE | 2021-02-28 16:49 | NUR ---
1625 PT ON 2LITERS NC. O2 SAT 88 ON RA. STATED SHE WAS HURTING. ABDOMEN SOFT AND DRESSING CDI. PT SHAKING STATED IT WAS NERVES. PT HAS ANXIETY. 1650 RECEIVED ICE CREAM AND WILL GIVE A PAIN PILL
--- NOTE | 2021-02-28 17:50 | NUR ---
1655 MEDICATED FOR PAIN
--- NOTE | 2021-02-28 19:52 | NUR ---
BLADDER SCANNED PT AND 203ML IN BLADDER. PT HAS NO IV OR UGENCY TO URINATE. MARINE DRILLER CALLED FOR A BED UNTIL PT IS ABLE TO URINATE
--- NOTE | 2021-02-28 19:55 | NUR ---
1830 IV REMOVED AND PT DRESSED AND INSTRUCTIONS GIVEN
--- NOTE | 2021-02-28 20:04 | NUR ---
2000 REPORT GIVEN TO BISHOP MACIAS
--- NOTE | 2021-02-28 20:05 | NUR ---
2000 PT TRANSFERED TO [facility] UNTIL ABLE TO URINATE
--- NOTE | 2021-02-28 23:44 | NUR ---
PT VOIDED >30ML, ESCORTED PT TO ER ENTRANCE VIA WHEELCHAIR.
--- NOTE | 2021-03-01 15:14 | OP ---
PATIENT NAME: RAMON RIVAS MEDICAL RECORD: [id number] :70 LOCATION:D.OPS ADMISSION DATE: SURGEON: MARY PIZARRO MD DATE OF OPERATION: 02/28/2021 PREOPERATIVE DIAGNOSES: 1. Biliary dyskinesia. 2. Hepatic steatosis by CT scan. POSTOPERATIVE DIAGNOSES: 1. Biliary dyskinesia. 2. Hepatic steatosis by CT scan. 3. Hepatomegaly. 4. Lower midline adhesions below the umbilicus. PROCEDURES: 1. Laparoscopic cholecystectomy. 2. Intraoperative cholangiography without immediate surgeon interpretation. 3. A 14-gauge core needle liver biopsy. SURGEON: Mary Pizarro MD. EMERGENCY VETERINARY ASSISTANT: None. BLOOD LOSS: Minimal. ANESTHESIA: General. COMPLICATIONS: None. INDICATIONS: Indication for the liver biopsy was hepatomegaly. It appeared that the patient had fatty liver disease and we need to address the severity of the fatty liver disease. DESCRIPTION OF PROCEDURE: The patient was conveyed to the operating room electively on 02/28/2021. General anesthesia was induced by the anesthesia staff. The abdomen was sterilely prepped and draped. Small skin incision was accomplished in the left upper quadrant. A Veress needle was inserted through the skin incision into the peritoneal cavity. CO2 insufflation was begun. Once a sufficient pneumoperitoneum had been achieved, a 5-mm trocar was inserted through this incision in the left upper quadrant. Under direct internal vision utilizing a television camera, a 12-mm trocar was inserted through the incision at the umbilicus. Another 5-mm trocar was inserted in the epigastrium to the right and then a 5-mm trocar was inserted far laterally in the right upper quadrant. During insertion of the Veress needle and all trocars, there appeared to have been no injury to the bowels, any intraperitoneal or retroperitoneal structures. Under laparoscopic guidance, I percutaneously accessed the right upper quadrant utilizing a 14-gauge core biopsy device. Core biopsies of the liver were obtained over its convexity. The biopsy sites were made hemostatic with the electrocautery. I then grasped the gallbladder. I advanced a cholangiogram trocar. I punctured the fundus of the gallbladder. I aspirated bile. I then injected dye. Real time static fluoroscopic images were obtained and sent to the radiologist for interpretation. These were cholangiographic images. I OPERATIVE REPORT [id number] MILY RIVASTA aspirated bile and removed the cholangiogram trocar. The gallbladder was grasped and retracted cephalad. The infundibulum was grasped and retracted laterally. Blunt dissection was begun in the triangle of Calot. One cystic artery and one cystic duct were identified, these were clipped multiply and divided between clips. The gallbladder was then excised from its bed in the liver. It was placed within a bag retrieval device and was withdrawn through the umbilical fascial defect. I irrigated and aspirated in the right upper quadrant. There was no bleeding even at low pressure of 8. The Varghese-Ion suture closure device and 0 Vicryl sutures were used to close the umbilical fascial defect. All trocars were removed and the abdomen desufflated. The skin incision at the umbilicus was closed with interrupted 4-0 Vicryl Rapide sutures. The other skin incisions were closed with interrupted intracuticular 3-0 Vicryls. Benzoin and Steri-Strips were applied. The patient was then extubated and conveyed to the postanesthesia care unit where she was in stable condition. It should be noted that on today's chest x-ray, the patient was found to have a new greater than 5 cm mass at the base of the right lung. This was not present on the most prior chest x-ray and it is very suspicious for a malignancy. I have told the patient this and I have described the importance of her to undergo a CT scan of the chest. I have asked her to make an appointment to see Dr. Feliz Schmidt who can set up the CT scan. TRANSINT:[id number] Voice Confirmation ID: [id number] DOCUMENT ID: [id number] MARY PIZARRO MD at 1514 CC: ALEIDA SCHMIDT [id number] DICTATION DATE: 02/28/21 185 CAPACITY PLANNING ENGINEER: 02/28/212124 [facility] 02/28/21 [place] [id number] [place] [id number]
== END 2021-02-28 23:50 | disposition home or self-care (01) ==
LOC: D.OPS 09:27 → D.MS 20:05 → D.OPS 23:50
PROVIDERS: ATTEND Surgery
DX: K82.8 Other specified diseases of gallbladder (principal); R16.0 Hepatomegaly, not elsewhere classified; K75.81 Nonalcoholic steatohepatitis (NASH); I10 Essential (primary) hypertension; K21.00 Gastro-esophageal reflux disease with esophagitis, without bleeding

== ENCOUNTER 2021-03-28 22:06 | Emergency (ER) | payer OTHER ==
[~2021-03-28] VITALS: Ht 162.6 cm; Wt 61.8 kg
[2021-03-28 22:12] VITALS: Ht 162.6 cm; Wt 61.8 kg
[2021-03-28 23:27] LABS: HEMATOCRIT 34.8 % (36.0-48.0); HEMOGLOBIN 10.9 g/dL (12-16); MCH 26.5 pg (26.0-34.0); MCHC 31.3 g/dL (31.0-37.0); MCV 84.5 fL (80.0-100.0); MEAN PLATELET VOLUME 9.1 fL (7.4-10.4); NEUTROPHILS 54.3 % (40-80); PLATELET COUNT 369 10x3/uL (130-400); RBC 4.12 10x6/uL (4.00-5.40); RDW 20.3 % (11.5-14.5); WBC 8.9 10x3/uL (4.8-10.8)
[2021-03-28 23:42] LABS: ANION GAP 16.7 mmol/L (8-16); APTT 35.8 SECONDS (22.8-39.4); CALCIUM 9.2 mg/dL (8.5-10.1); CARBON DIOXIDE 23.1 mmol/L (21.0-32.0); CREATININE - SERUM 0.9 mg/dL (0.6-1.3); INR 1.15 (0.85-1.17); POTASSIUM - SERUM 3.8 mmol/L (3.5-5.1); PROTIME 13.7 SECONDS (11.6-15.0)
[2021-03-28 23:48] LABS: ALBUMIN 4.2 g/dL (3.4-5.0); BILIRUBIN - TOTAL 0.53 mg/dL (0.2-1.3)
[2021-03-29 00:05] VITALS: BP 175/111
== END 2021-03-29 00:24 | disposition home or self-care (01) ==
LOC: D.ER 22:06
PROVIDERS: Emergency Medicine
DX: K92.2 Gastrointestinal hemorrhage, unspecified (principal); R10.9 Unspecified abdominal pain; I10 Essential (primary) hypertension; K21.9 Gastro-esophageal reflux disease without esophagitis; Z72.0 Tobacco use

== ENCOUNTER 2021-03-30 19:57 | Inpatient (IN) | payer OTHER ==
[~2021-03-30] VITALS: Ht 162.6 cm; Wt 63.5 kg
[2021-03-30 20:41] LABS: BASOPHILS 0.3 % (0-2); HEMOGLOBIN 10.7 g/dL (12-16); IMMATURE GRANULOCYTES 0.5 % (0-5); LYMPHOCYTE ABS# 6.51 10x3/uL (1.18-3.74); LYMPHOCYTES 44.4 % (15-50); MCH 25.9 pg (26.0-34.0); MCHC 31.5 g/dL (31.0-37.0); MEAN PLATELET VOLUME 9.2 fL (7.4-10.4); MONOCYTES 4.5 % (2-11); NEUTROPHIL ABS# 6.32 10x3/uL (1.56-6.13); NEUTROPHILS 43.3 % (40-80); PLATELET COUNT 378 10x3/uL (130-400); RBC 4.13 10x6/uL (4.00-5.40); RDW 20.5 % (11.5-14.5)
[2021-03-30 20:44] LABS: CALCIUM 8.6 mg/dL (8.5-10.1); CARBON DIOXIDE 22.4 mmol/L (21.0-32.0); CHLORIDE - SERUM 98 mmol/L (98-107); GLUCOSE 103 mg/dL (74-106); SODIUM 135 mmol/L (136-145)
[2021-03-30 20:45] LABS: CALC OSMOLALITY 273 mosm/kg (275-300); CREATININE - SERUM 1.5 mg/dL (0.6-1.3); POTASSIUM - SERUM 3.2 mmol/L (3.5-5.1); UREA NITROGEN 23 mg/dL (7-18); eGFR NON AFRICAN AMERICAN 39 mL/min (90-120)
[2021-03-30 20:58] LABS: MCV 82.3 fL (80.0-100.0); WBC 14.7 10x3/uL (4.8-10.8)
[2021-03-30 20:59] LABS: ALBUMIN 3.9 g/dL (3.4-5.0); ALKALINE PHOSPHATASE 80 U/L (30-120); ALT (SGPT) 17 U/L (10-68); BILIRUBIN - TOTAL 0.16 mg/dL (0.2-1.3); C-REACTIVE PROTEIN 0.6 mg/dL (0.0-0.9); CREATINE KINASE 153 UL (21-215); LIPASE 76 U/L (73-393); PRO BNP 62 pg/mL (0-125); PROTEIN - SERUM 7.9 g/dL (6.4-8.2); THYROID STIMULATING HORMONE 3.38 uIU/mL (0.36-3.74); TROPONIN-I < 0.017 ng/mL (0.000-0.060)
[2021-03-30 21:13] LABS: APTT 28.8 SECONDS (22.8-39.4); INR 1.11 (0.85-1.17); PROTIME 13.2 SECONDS (11.6-15.0)
[2021-03-30 22:04] LABS: HEMATOCRIT 31.5 % (36.0-48.0); HEMOGLOBIN 10.1 g/dL (12-16)
--- NOTE | 2021-03-30 23:58 | NUR ---
PATIENT ARRIVED TO ICU. PATIENT IS ALERT AND ORIENTED, RESTING COMFORTABLY IN BED. RESPIRATIONS ARE EVEN AND UNLABORED. NO S/S OF DISTRESS. NO C/O PAIN. NEEDS MET AT THIS TIME. CALL LIGHT WITHIN REACH. WILL CPOC.
[2021-03-31] VITALS (15 sets, daily range): BP systolic 114–177; BP diastolic 84–108; BMI 24.0
--- NOTE | 2021-03-31 00:40 | NUR ---
PATIENT TRANSPORTED TO [facility].
--- NOTE | 2021-03-31 02:00 | NUR ---
PATIENT RETURNED FROM NUC/MED. PATIENT IS ALERT AND ORIENTED, RESTING COMFORTABLY IN BED. RESPIRATIONS ARE EVEN AND UNLABORED. NO S/S OF DISTRESS. NO C/O PAIN. DENIES NEEDS AT THIS TIME. CALL LIGHT WITHIN REACH. WILL CPOC.
--- NOTE | 2021-03-31 02:30 | NUR ---
SECOND UNIT OF [facility] STARTED. PATIENT IS ALERT AND ORIENTED. NO S/S OF DISTRESS. NO C/O PAIN. BP 145/95. RESPIRATION 20, PULSE 85.
--- NOTE | 2021-03-31 03:37 | NUR ---
PATIENT CALLED ON THE CALL LIGHT. THIS RN AND TREMAYNE RN WENT INTO PATIENT ROOM. PATIENT MADE ACCUSATIONS THAT EVERYONE WAS TALKING ABOUT HER AND WE NEED TO KEEP HER NAME OUT OF OUR MOUTHS. MYSELF AND TREMAYNE RN ATTEMPTED TO REASSURE PATIENT THAT NO ONE WAS TALKING ABOUT HER. PATIENT BECAME MORE AGITATED. BOTH NURSES APOLOGIZED AND LEFT ROOM.
[2021-03-31 08:19] LABS: BASOPHILS 0.4 % (0-2); EOSINOPHILS 5.6 % (0-7); HEMATOCRIT 36.4 % (36.0-48.0); HEMOGLOBIN 11.8 g/dL (12-16); IMMATURE GRANULOCYTES 0.3 % (0-5); LYMPHOCYTE ABS# 4.27 10x3/uL (1.18-3.74); LYMPHOCYTES 35.1 % (15-50); MCH 26.6 pg (26.0-34.0); MCHC 32.4 g/dL (31.0-37.0); MEAN PLATELET VOLUME 9.5 fL (7.4-10.4); MONOCYTES 3.4 % (2-11); NEUTROPHIL ABS# 6.72 10x3/uL (1.56-6.13); NEUTROPHILS 55.2 % (40-80); PLATELET COUNT 358 10x3/uL (130-400); RBC 4.44 10x6/uL (4.00-5.40); RDW 20.3 % (11.5-14.5); WBC 12.2 10x3/uL (4.8-10.8)
[2021-03-31 08:28] LABS: ALBUMIN 3.9 g/dL (3.4-5.0); ALKALINE PHOSPHATASE 78 U/L (30-120); ALT (SGPT) 15 U/L (10-68); BILIRUBIN - TOTAL 0.42 mg/dL (0.2-1.3); CALC OSMOLALITY 275 mosm/kg (275-300); CALCIUM 9.2 mg/dL (8.5-10.1); CARBON DIOXIDE 23.4 mmol/L (21.0-32.0); CHLORIDE - SERUM 101 mmol/L (98-107); GLUCOSE 92 mg/dL (74-106); MAGNESIUM - SERUM 2.1 mg/dL (1.8-2.4); PHOSPHOROUS 3.5 mg/dL (2.5-4.9); PROTEIN - SERUM 7.9 g/dL (6.4-8.2); SODIUM 137 mmol/L (136-145); UREA NITROGEN 19 mg/dL (7-18)
[2021-03-31 08:29] LABS: CREATININE - SERUM 0.8 mg/dL (0.6-1.3); POTASSIUM - SERUM 4.2 mmol/L (3.5-5.1); eGFR NON AFRICAN AMERICAN 80 mL/min (90-120)
--- NOTE | 2021-03-31 10:14 | NUR ---
0715-DR PIZARRO CALLED UNIT AND UPDATE GIVEN-PT AWAKE AND ALERT-ASSISTED TO BEDSIDE COMMODE-BATH WIPES GIVEN-STATED SHE CLEANS HERSELF AND REQUIRES NO ASSISTANCE WITH PERSONAL CARE-AMBULATING AT [facility] 0900-ATTEMPTED TO GIVE PO MEDS ORDERED-PT STATED -I DO NOT TAKE THOSE-PHILIP/MUCINEX PERLE-NOT ON HOME MED LIST-HELD MEDS AT THIS TIME-LOVENOX HELD-PENDING CONFIRMATION
[2021-03-31 10:21] LABS: HEMATOCRIT 36.2 % (36.0-48.0); HEMOGLOBIN 11.9 g/dL (12-16)
--- NOTE | 2021-03-31 10:33 | NUR ---
1020-[facility]'D [facility] FOR ON-CALL MD/PRACTITIONER REGARDING RESTART HOME MEDS-PT CONCERN FOR CURRENT MEDS ORDERED-AND PT WISH TO BE MOVED OFF THIS UNIT-STATING WE ARE TALKING ABOUT HER-MOD ANGER-OFFERED TO CLOSE DOOR TO IMPROVE ENVIRONMENT-REFUSED-
--- NOTE | 2021-03-31 10:51 | NUR ---
DR CRISOSTOMO PRESENT AND MADE AWARE OF PT CONCERNS AND COMPLAINTS-REFUSAL TO TAKE AM MEDS-STATING I DON'T TAKE THOSE
[2021-03-31 15:28] LABS: BILIRUBIN NEGATIVE (NEGATIVE); KETONE LARGE mg/dL (NEGATIVE); NITRITE NEGATIVE (NEGATIVE); UROBILINOGEN NORMAL mg/dL (< 2)
[2021-03-31 15:40] LABS: UDS - AMPHET NEGATIVE QUAL (NEGATIVE); UDS - BARB NEGATIVE QUAL (NEGATIVE); UDS - BENZO NEGATIVE QUAL (NEGATIVE); UDS - COCAINE NEGATIVE QUAL (NEGATIVE); UDS - OPIATE NEGATIVE QUAL (NEGATIVE); UDS - PCP NEGATIVE QUAL (NEGATIVE); UDS - THC NEGATIVE QUAL (NEGATIVE)
--- NOTE | 2021-03-31 15:45 | NUR ---
PT ARIVED TO ROOM VIA WHEELCHAIR. IN BED RESTING PEACEFULLY. EYES CLOSED, BREATHS EVEN/REGULAR/UNLABORED. CL IN REACH ,SRX2, NO SIGNS OR SYMPTOMS OF ACUTE DISTRESS NOTED AT THIS TIME.
--- NOTE | 2021-03-31 15:54 | NUR ---
DR CRISOSTOMO INFORMED OF BLOOD IN URINE-PT INSIST FROM VAGINA-ORDER REICEIVED-IN AND OUT CATH-NO OVERT BLEEDING FROM VAGINA-URINE CLEAR-SENT FOR UA-PHYSICAL ABNORMALITY-URETHRA ON INSIDE FRONTAL WALL/OPENING OF VAGINA=HX OF HYSTERECTOMY PT REPORT CALLED TO [facility] AND TRANSFERED VIA WHEELCHAIR
[2021-03-31 16:22] LABS: HEMATOCRIT 40.3 % (36.0-48.0); HEMOGLOBIN 13.3 g/dL (12-16)
--- NOTE | 2021-03-31 18:28 | NUR ---
PT ALERT AND ORIENTED, LYING IN BED WATCHING T/V. FAMILY AT BEDSIDE. NO COMPLAINTS OR CONCERNS AT THIS TIME. CL IN REACH, SRX2. PT UP INDEPENDANTLY IN ROOM.
[2021-04-01 00:26] LABS: HEMATOCRIT 38.9 % (36.0-48.0); HEMOGLOBIN 12.4 g/dL (12-16)
[2021-04-01 02:59] VITALS: BP 142/98
--- NOTE | 2021-04-01 03:27 | NUR ---
PTS MOTHER CALLED EARLIER IN THE EVENING. CONCERNS ABOUT PTS LOC. STATED SHE WAS ACTING "STRANGE" TALKING TO SOMEONE THAT WASNT THERE. PRIMARY NURSE CONFIRMED THAT PT WAS ALONE AND WAS NOT EXHIBITING ABNORMAL BEHAVIOR. THIS WAS PRIOR TO THE AMBIEN ADMINISTRATION. PT HAS NOT HAS ANY ISSUES THIS EVENING. ICU DID REPORT STRANGE BEHAVIOR THE NIGHT PRIOR. WILL CTM.
[2021-04-01 07:19] LABS: BASOPHILS 0.4 % (0-2); EOSINOPHILS 8.9 % (0-7); HEMATOCRIT 37.5 % (36.0-48.0); HEMOGLOBIN 12.1 g/dL (12-16); IMMATURE GRANULOCYTES 0.4 % (0-5); LYMPHOCYTE ABS# 4.68 10x3/uL (1.18-3.74); LYMPHOCYTES 43.6 % (15-50); MCH 26.4 pg (26.0-34.0); MCHC 32.3 g/dL (31.0-37.0); MCV 81.9 fL (80.0-100.0); MEAN PLATELET VOLUME 9.6 fL (7.4-10.4); MONOCYTES 4.1 % (2-11); NEUTROPHIL ABS# 4.58 10x3/uL (1.56-6.13); NEUTROPHILS 42.6 % (40-80); PLATELET COUNT 375 10x3/uL (130-400); RBC 4.58 10x6/uL (4.00-5.40); RDW 20.5 % (11.5-14.5); WBC 10.7 10x3/uL (4.8-10.8)
[2021-04-01 07:39] LABS: ALBUMIN 3.6 g/dL (3.4-5.0); ALKALINE PHOSPHATASE 76 U/L (30-120); ALT (SGPT) 15 U/L (10-68); BILIRUBIN - TOTAL 0.39 mg/dL (0.2-1.3); CALC OSMOLALITY 278 mosm/kg (275-300); CALCIUM 9.2 mg/dL (8.5-10.1); CARBON DIOXIDE 24.2 mmol/L (21.0-32.0); CHLORIDE - SERUM 104 mmol/L (98-107); CREATININE - SERUM 0.8 mg/dL (0.6-1.3); GLUCOSE 90 mg/dL (74-106); POTASSIUM - SERUM 3.7 mmol/L (3.5-5.1); PROTEIN - SERUM 7.1 g/dL (6.4-8.2); SODIUM 140 mmol/L (136-145); UREA NITROGEN 13 mg/dL (7-18); eGFR NON AFRICAN AMERICAN 80 mL/min (90-120)
[2021-04-01 09:19] VITALS: BP 156/94
[2021-04-01 10:41] LABS: HEMATOCRIT 37.4 % (36.0-48.0); HEMOGLOBIN 12.1 g/dL (12-16)
[2021-04-01 12:31] VITALS: Ht 162.6 cm; Wt 63.5 kg
[2021-04-01 13:21] VITALS: BP 169/100
--- NOTE | 2021-04-01 15:44 | NUR ---
PATIENT HEADED TO CT.
--- NOTE | 2021-04-01 19:30 | NUR ---
PT IN BED, AAO X 4, RESP EVEN AND UNLABORED, NO DISTRESS NOTED, CL IN REACH, SR UP X 2.
[2021-04-01 20:00] VITALS: BP 188/108
[2021-04-02] VITALS: BP 127/80
[2021-04-02 04:00] VITALS: BP 155/92
--- NOTE | 2021-04-02 04:15 | NUR ---
I have reviewed this patient and I concur with the Shift Assessment completed by the Licensed Practical Nurse today this shift.
[2021-04-02 06:26] LABS: BASOPHILS 0.3 % (0-2); HEMOGLOBIN 12.6 g/dL (12-16); IMMATURE GRANULOCYTES 0.4 % (0-5); LYMPHOCYTE ABS# 5.05 10x3/uL (1.18-3.74); LYMPHOCYTES 47.5 % (15-50); MCH 26.7 pg (26.0-34.0); MCHC 32.3 g/dL (31.0-37.0); MCV 82.6 fL (80.0-100.0); MEAN PLATELET VOLUME 9.8 fL (7.4-10.4); MONOCYTES 0.1 % (2-11); NEUTROPHIL ABS# 4.55 10x3/uL (1.56-6.13); NEUTROPHILS 42.7 % (40-80); PLATELET COUNT 416 10x3/uL (130-400); RBC 4.72 10x6/uL (4.00-5.40); RDW 20.6 % (11.5-14.5); WBC 10.6 10x3/uL (4.8-10.8)
[2021-04-02 06:47] LABS: ALBUMIN 3.5 g/dL (3.4-5.0); ALKALINE PHOSPHATASE 75 U/L (30-120); BILIRUBIN - TOTAL 0.18 mg/dL (0.2-1.3); CALC OSMOLALITY 281 mosm/kg (275-300); CALCIUM 8.8 mg/dL (8.5-10.1); CARBON DIOXIDE 25.2 mmol/L (21.0-32.0); CHLORIDE - SERUM 104 mmol/L (98-107); CREATININE - SERUM 0.8 mg/dL (0.6-1.3); GLUCOSE 114 mg/dL (74-106); POTASSIUM - SERUM 3.4 mmol/L (3.5-5.1); PROTEIN - SERUM 7.3 g/dL (6.4-8.2); SODIUM 141 mmol/L (136-145); UREA NITROGEN 12 mg/dL (7-18); eGFR NON AFRICAN AMERICAN 80 mL/min (90-120)
[2021-04-02 06:48] LABS: ALT (SGPT) 19 U/L (10-68)
--- NOTE | 2021-04-02 07:13 | NUR ---
RECEIVE SHIFT REPORT. RESTING IN BED WITH EYES CLOSED. DENIES ANY NEEDS AT THIS TIME. CONTINUE POC AND SAFETY PRECAUTIONS.
[2021-04-02 08:38] VITALS: BP 169/104
[2021-04-02] MEDS ORDERED: NICODERM CQ1 EAC3 TRANSDERM (11:51)
[2021-04-02 12:12] VITALS: BP 149/97
--- NOTE | 2021-04-02 14:22 | NUR ---
D/C RIGHT AC IV, TIP INTACT. D/C LEFT FOREARM IV, TIP INTACT. DISCHARGE INSTRUCTIONS GIVEN VERBALLY AND HANDOUTS PROVIDED. FAMILY AT BEDSIDE. TAKEN DOWN TO ENTRANCE VIA WHEELCHAIR.
--- NOTE | 2021-04-02 17:20 | MORECARE ---
CASE MANAGEMENT DISCHARGE SUMMARY PATIENT: RAMON RIVAS UNIT: [id number] ADM DATE: 03/30/21 AGE: 50 : 70 SEX: F ROOM/BED: D2106 AUTHOR: MAXIME,DOC PHYSICIAN: REFERRING PHYSICIAN: RAYO ANNE MD DATE OF SERVICE: 04/02/21 Case Management Discharge Planning Summary DCP REVIEW SUMMARY ANTICIPATED D/C DATE: EXPECTED LOS : 0 CASE STATUS: DCP Complete INITIAL REVIEW: 04/02/2021 INITIAL REVIEWER: Alessandra Chu FINAL DISCHARGE DISPOSITION: 01 : Home or Self Care (Routine Discharge) FINAL REVIEWER: Alessandra Chu FINAL REVIEW DATE: 04/02/2021 DCP Focus Questions & Answers QUESTION: ANSWER : PATIENT: RAMON RIVAS ENCOUNTER: [id number] MEDICAL RECORD#: [id number] ADMISSION DATE: 03/30/2021 DISCHARGE DATE: 04/02/2021 ATTENDING MD: : AGE: 50 MARITAL STATUS: S DC PLAN ID: [id number] FACILITY: [facility] PRINTED ON: 04/02/21 17:20 CT All edits/amendments must be made on the electronic document DICTATION DATE: 04/02/211719 PALLIATIVE CARE SPECIALIST: DARYL 04/02/211719 RPT#: [id number] DC DATE:04/02/21 STATUS: DIS IN [facility] [address] [place] [address] END OF REPORT
== END 2021-04-02 14:23 | disposition home or self-care (01) | DRG 872 ==
LOC: D.ER 19:57 → D.ICU 22:08 → D.M2 22:08
PROVIDERS: Family Medicine; ADMIT Family Medicine; ATTEND Family Medicine
DX: A41.9 Sepsis, unspecified organism (principal); K92.2 Gastrointestinal hemorrhage, unspecified; N17.9 Acute kidney failure, unspecified; F17.203 Nicotine dependence unspecified, with withdrawal; K76.6 Portal hypertension; N39.0 Urinary tract infection, site not specified; R55 Syncope and collapse; E87.6 Hypokalemia; I10 Essential (primary) hypertension; J44.9 Chronic obstructive pulmonary disease, unspecified; F41.8 Other specified anxiety disorders; E78.5 Hyperlipidemia, unspecified; K21.00 Gastro-esophageal reflux disease with esophagitis, without bleeding; K44.9 Diaphragmatic hernia without obstruction or gangrene; K31.89 Other diseases of stomach and duodenum; R91.8 Other nonspecific abnormal finding of lung field